=== PATIENT | female | born 1970 | race Caucasian/White ===

== ENCOUNTER 2018-04-14 06:26 | Emergency (ER) | payer OTHER ==
[~2018-04-14] VITALS: Ht 160 cm; Wt 82.3 kg
[2018-04-14 06:35] VITALS: BP 156/100
[2018-04-14] MEDS ORDERED: ZOLOFT 100MG100 MG PO (06:37)
[2018-04-14] MEDS ORDERED: ZESTRIL10 M1 PO (06:37)
== END 2018-04-14 07:08 | disposition home or self-care (01) ==
LOC: ED 06:26
DX: R21 Rash and other nonspecific skin eruption (principal); J02.9 Acute pharyngitis, unspecified; Z53.21 Procedure and treatment not carried out due to patient leaving prior to being seen by health care provider; I10 Essential (primary) hypertension; F32.9 Major depressive disorder, single episode, unspecified; Z79.899 Other long term (current) drug therapy

== ENCOUNTER 2021-07-09 16:24 | Emergency (ER) | payer OTHER ==
[~2021-07-09] VITALS: Ht 157.5 cm; Wt 82.3 kg
[~2021-07-09 16:24] MED LIST: ZESTRIL10 M1 PO; ZOLOFT 100MG100 MG PO
[2021-07-09] MEDS ORDERED: AMBIEN10 MG PO (17:15)
[2021-07-09 17:38] LABS: EOS # 0.02 K/mm3 (0.04-0.40); EOS % 0.7 % (1.0-5.0); HEMATOCRIT 41.2 % (37.0-47.0); HEMOGLOBIN 13.6 g/dL (12.5-16.0); LYMPH# 0.99 K/mm3 (1.50-4.00); MEAN CELL VOLUME 79 fl (78-100); MEAN CORPUSCULAR HEMOGLOBIN 26 pg (27-31); MEAN CORPUSCULAR HGB CONC 33 g/dL (33-37); MEAN PLATELET VOLUME 12.3 fl (7.4-10.4); MONO # 0.34 K/mm3 (0.20-0.80); PLATELET COUNT 141 K/mm3 (130-400); RED BLOOD COUNT 5.21 M/mm3 (4.10-5.30); RED CELL DISTRIBUTION WIDTH 13.3 % (11.5-14.5); WHITE BLOOD COUNT 2.9 K/mm3 (4.8-10.8)
[2021-07-09 18:11] LABS: ALBUMIN 4.1 g/dL (3.5-5.0)
[2021-07-09 18:12] LABS: POTASSIUM 3.3 mmol/L (3.5-5.1)
[2021-07-09 18:13] LABS: CALCIUM 8.8 mg/dL (8.3-10.5)
[2021-07-09 18:14] LABS: TOTAL PROTEIN 6.3 g/dL (6.4-8.3)
[2021-07-09 18:16] LABS: TOTAL BILIRUBIN 0.6 mg/dL (0.2-1.2)
[2021-07-09 18:26] LABS: D-DIMER 0.51 mg/L FEU (0.15-0.50)
[2021-07-09] MEDS ORDERED: MORGIDOX 1X100100 MG PO (19:37)
[2021-07-09 20:02] VITALS: BP 121/72
[2021-07-09 21:06] LABS: URINE APPEARANCE CLEAR; URINE COLOR YELLOW; URINE GLUCOSE NEGATIVE (NEGATIVE); URINE PROTEIN(semi-quant) 1+ (NEGATIVE)
[2021-07-09 21:07] LABS: URINE BILIRUBIN NEGATIVE (NEGATIVE); URINE BLOOD TRACE (NEGATIVE); URINE KETONE 1+ (NEGATIVE); URINE LEUKOCYTE ESTERASE TRACE (NEGATIVE); URINE MUCUS PRESENT (NOT PRESENT); URINE NITRATE NEGATIVE (NEGATIVE); URINE UROBILINOGEN 4 mg/dL (NORMAL)
== END 2021-07-09 20:02 | disposition home or self-care (01) ==
LOC: ED 16:24
PROVIDERS: Nurse Practitioner
DX: U07.1 COVID-19 (principal); J12.82 Pneumonia due to coronavirus disease 2019
CPT/HCPCS: J7030; Q9967

== ENCOUNTER 2022-06-04 08:00 | Outpatient (RCR) | payer OTHER ==
[~2022-06-04 08:00] MED LIST changes: +AMBIEN10 MG PO; +MORGIDOX 1X100100 MG PO
== END 2022-07-02 | disposition home or self-care (01) ==
LOC: OT
DX: S42.392D Other fracture of shaft of left humerus, subsequent encounter for fracture with routine healing (principal); G56.30 Lesion of radial nerve, unspecified upper limb; X58.XXXD Exposure to other specified factors, subsequent encounter

== ENCOUNTER 2022-07-31 08:00 | Outpatient (RCR) | payer OTHER | END 2022-08-30 | disposition home or self-care (01) | LOC: OT | DX: S42.392D Other fracture of shaft of left humerus, subsequent encounter for fracture with routine healing (principal); G56.30 Lesion of radial nerve, unspecified upper limb; X58.XXXD Exposure to other specified factors, subsequent encounter ==

== ENCOUNTER 2022-09-07 14:19 | Emergency (ER) | payer OTHER ==
[~2022-09-07] VITALS: Ht 162.6 cm; Wt 76.4 kg
[2022-09-07] MEDS ORDERED: NEURONTIN300 MG/CAP PO (14:30)
[2022-09-07] MEDS ORDERED: PERCOCET 325 MG1 TA2 PO (15:38)
[2022-09-07 16:00] VITALS: BP 169/104
== END 2022-09-07 15:54 | disposition home or self-care (01) ==
LOC: ED 14:19
DX: S52.121A Displaced fracture of head of right radius, initial encounter for closed fracture (principal); V58.6XXA Passenger in pick-up truck or van injured in noncollision transport accident in traffic accident, initial encounter
CPT/HCPCS: J1885

== ENCOUNTER 2023-01-01 13:55 | Outpatient (RCR) | payer OTHER ==
[~2023-01-01 13:55] MED LIST changes: +NEURONTIN300 MG/CAP PO; +PERCOCET 325 MG1 TA2 PO
== END 2023-01-30 | disposition home or self-care (01) ==
LOC: OT
DX: S42.392D Other fracture of shaft of left humerus, subsequent encounter for fracture with routine healing (principal); G56.30 Lesion of radial nerve, unspecified upper limb; X58.XXXD Exposure to other specified factors, subsequent encounter

== ENCOUNTER 2023-01-31 08:00 | Outpatient (RCR) | payer OTHER | END 2023-03-01 | disposition home or self-care (01) | LOC: OT | DX: G58.9 Mononeuropathy, unspecified (principal) ==

== ENCOUNTER → 2024-01-13 | Outpatient (CLI) | payer OTHER ==
[2024-01-13 14:25] LABS: BASO # 0.02 K/mm3 (0.02-0.10); EOS # 0.07 K/mm3 (0.04-0.40); EOS % 1.6 % (1.0-5.0); HEMATOCRIT 36.4 % (37.0-47.0); LYMPH# 1.72 K/mm3 (1.50-4.00); MEAN CELL VOLUME 77 fl (78-100); MEAN CORPUSCULAR HEMOGLOBIN 23 pg (27-31); MEAN CORPUSCULAR HGB CONC 30 g/dL (33-37); MEAN PLATELET VOLUME 10.9 fl (7.4-10.4); MONO # 0.38 K/mm3 (0.20-0.80); NEU # 2.13 K/mm3 (1.40-6.50); PLATELET COUNT 166 K/mm3 (130-400); RED CELL DISTRIBUTION WIDTH 14.8 % (11.5-14.5); WHITE BLOOD COUNT 4.3 K/mm3 (4.8-10.8)
[2024-01-13 14:31] LABS: ALBUMIN 4.1 g/dL (3.5-5.0)
[2024-01-13 14:33] LABS: CALCIUM 9.1 mg/dL (8.3-10.5)
[2024-01-13 14:34] LABS: TOTAL PROTEIN 5.5 g/dL (6.4-8.3)
[2024-01-13 14:36] LABS: TOTAL BILIRUBIN 0.3 mg/dL (0.2-1.2)
== END ==
LOC: RAD 09:00
PROVIDERS: Internal Medicine
DX: C82.05 Follicular lymphoma grade I, lymph nodes of inguinal region and lower limb (principal); D50.8 Other iron deficiency anemias

== ENCOUNTER → 2024-05-19 | Outpatient (CLI) | payer OTHER ==
[~2024-05-19] MED LIST changes: +Iohexol 300 - 100 ML VIAL IV ONE
[2024-05-19 13:38] LABS: BASO # 0.01 K/mm3 (0.02-0.10); EOS # 0.11 K/mm3 (0.04-0.40); EOS % 2.2 % (1.0-5.0); HEMATOCRIT 39.6 % (37.0-47.0); LYMPH# 1.58 K/mm3 (1.50-4.00); MEAN CELL VOLUME 89 fl (78-100); MEAN CORPUSCULAR HEMOGLOBIN 29 pg (27-31); MEAN CORPUSCULAR HGB CONC 33 g/dL (33-37); MEAN PLATELET VOLUME 9.7 fl (7.4-10.4); MONO # 0.32 K/mm3 (0.20-0.80); PLATELET COUNT 177 K/mm3 (130-400); RED BLOOD COUNT 4.46 M/mm3 (4.10-5.30); RED CELL DISTRIBUTION WIDTH 14.2 % (11.5-14.5); WHITE BLOOD COUNT 4.9 K/mm3 (4.8-10.8)
[2024-05-19 13:45] LABS: ALBUMIN 4.1 g/dL (3.5-5.0)
[2024-05-19 13:47] LABS: CALCIUM 8.8 mg/dL (8.3-10.5)
[2024-05-19 13:48] LABS: TOTAL PROTEIN 5.6 g/dL (6.4-8.3)
[2024-05-19 13:50] LABS: TOTAL BILIRUBIN 0.3 mg/dL (0.2-1.2)
== END ==
LOC: RAD 09:00
PROVIDERS: Internal Medicine
DX: C82.05 Follicular lymphoma grade I, lymph nodes of inguinal region and lower limb (principal); D50.8 Other iron deficiency anemias; R91.8 Other nonspecific abnormal finding of lung field
CPT/HCPCS: Q9967